=== PATIENT | male | born 1985 | race Caucasian/White ===

== ENCOUNTER 2022-03-21 14:39 | Emergency (ER) | payer OTHER ==
[~2022-03-21] VITALS: Ht 172.7 cm; Wt 76.2 kg
[2022-03-21 14:48] VITALS: BP 146/91
[2022-03-21] MEDS ORDERED: PRED20TA5 PO (15:12)
--- NOTE | 2022-03-21 15:20 | NUR ---
36 y/o male, pt presents to ed with c/o generalized abd pain with diarrhea and ulcers in his mouth. pt state he has hx of crohns disease and states it may be a flare up due to not having his yaron refilled for 2 weeks. abd round/soft/tender. a&ox4, ambulates with steady gait. pmh: crohns disease, htn allergy: morphine
[2022-03-21 15:23] VITALS: BP 146/91
--- NOTE | 2022-03-21 15:23 | NUR ---
Patient discharged with v/s stable. Written and verbal after care instructions given and explained. Patient alert, oriented and verbalized understanding of instructions. Ambulatory with steady gait. All questions addressed prior to discharge. ID band removed. Patient advised to follow up with PMD. Rx of prednisone (Sent) given. Patient educated on indication of medication including possible reaction and side effects. Opportunity to ask questions provided and answered.
== END 2022-03-21 15:23 | disposition home or self-care (01) ==
LOC: MED 14:39
DX: K50.90 Crohn's disease, unspecified, without complications (principal); Z79.891 Long term (current) use of opiate analgesic; Z72.89 Other problems related to lifestyle; Z90.49 Acquired absence of other specified parts of digestive tract; Z98.890 Other specified postprocedural states
CPT/HCPCS: 99283